=== PATIENT | male | born 1995 | race Caucasian/White ===

== ENCOUNTER → 2017-06-26 09:45 | Emergency (ER) | payer OTHER ==
[~2017-06-26 09:45] MED LIST: Ibuprofen TAB* 800 MG PO ONE
--- NOTE | 2017-06-26 11:32 | RAD ---
INDICATION: Left knee injury. TECHNIQUE: 4 views of the left knee were obtained. FINDINGS: The bones are in normal alignment. No joint effusion or fracture is seen. Joint spaces appear maintained. IMPRESSION: NO EVIDENCE FOR FRACTURE.
--- NOTE | 2017-06-26 11:32 | RAD ---
INDICATION: Left elbow injury, laceration. TECHNIQUE: 4 views of the left elbow were obtained. FINDINGS: There is soft tissue swelling and a soft tissue defect posterior to the olecranon process of the ulna. The bones are in normal alignment. No joint effusion or fracture is seen. No radio opaque foreign body is seen. IMPRESSION: SOFT TISSUE INJURY POSTERIOR TO THE PROXIMAL ULNA.
--- NOTE | 2017-06-26 13:31 | ED ---
Complex/Multi-Sys Presentation - HPI Summary HPI Summary: Pt here w/ multiple injuries - fell last night while trying to run carrying tacos in the rain. Slipped and fell. Cut Left elbow and landed on Lt knee - elbow has been cleaned and bandaged by a friend wound sore - elbow moving well. No bleeding at this time. Lt knee is worse w/ bending along lateral aspect - no bruising, swelling, numbness, tingling, weakness. Is able to bear weight. Has not tried anything for pain here. No other areas of pain or injury. Although he admits he was intoxicated, he recall all events and denies head injury, LOC, BLANCAS , visual change, vomiting or neck pain. Imms are UTD. 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 - Allergies/Home Medications Allergies/Adverse Reactions: Allergies Allergy/AdvReac Type Severity Reaction Status Date / Time No Known Allergies Allergy Verified 06/26/17 11:21 PMH/Surg Hx/FS Hx/Imm Hx Previously Healthy: Yes Endocrine/Hematology History: Denies: Hx Anticoagulant Therapy, Hx Blood Disorders, Autoimmune Disease - Immunization History Immunizations Up to Date: Yes Infectious Disease History: No Infectious Disease History: Denies: Hx of Known/Suspected MRSA, Traveled Outside the [place] in Last 30 Days - Family History Known Family History: Positive: None - Social History Occupation: Student Lives: With Family Alcohol Use: Weekly Hx Substance Use: No Substance Use Type: Reports: None Hx Tobacco Use: No Smoking Status (MU): Never Smoked Tobacco Review of Systems Constitutional: Negative Eyes: Negative Negative: Photophobia, Blurred Vision ENT: Negative Negative: Dental Pain Cardiovascular: Negative Negative: Chest Pain Respiratory: Negative Negative: Shortness Of Breath Gastrointestinal: Negative Negative: Abdominal Pain, Vomiting, Nausea Positive: no symptoms reported Musculoskeletal: Other - see HPI Skin: Other - see HPI Neurological: Negative Negative: Headache, Weakness, Paresthesia, Numbness, Syncope, Slurred Speech Psychological: Normal All Other Systems Reviewed And Are Negative: Yes Physical Exam Triage Information Reviewed: Yes Vital Signs On Initial Exam: Initial Vitals Temp Pulse Resp BP Pulse Ox 97.8 F 85 17 149/85 98 06/26/17 09:53 06/26/17 09:53 06/26/17 09:53 06/26/17 09:53 06/26/17 09:53 Vital Signs Reviewed: Yes Appearance: Positive: Well-Appearing, No Pain Distress, Well-Nourished Skin: Positive: Warm - dressing removed - blood tinged from linear laceration over Lt posterior elbow - appears clean, no edema; Lt knee w/o skin changes Head/Face: Positive: Normal Head/Face Inspection Eyes: Positive: Normal, EOMI, SID, Conjunctiva Clear ENT: Positive: Hearing grossly normal Respiratory/Lung Sounds: Positive: Breath Sounds Present Cardiovascular: Positive: Normal, Pulses are Symmetrical in both Upper and Lower Extremities Musculoskeletal: Positive: Strength/ROM Intact, Pain @ - Lt lateral knee joint is TTP - pain w/ movement but has FROM - no gross deformity - ankle and hip moving well w/o pain Neurological: Positive: Normal, Sensory/Motor Intact, Alert, Oriented to Person Place, Time, CN Intact II-III Psychiatric: Positive: Normal Procedures - Laceration/Wound Repair 1 Location: upper extremity - Lt elbow Description: Linear Anesthesia: Local, Lido Length, Depth and Shape: 2cm x2.5mm Betadine Prep?: Yes Irrigated w/ Saline (ccs): 100 Laceration/Wound Explored: clean Closure: Single Layer Suture Type: Nylon - 5-0 Number of Sutures: 5 Layer Closure?: No Sterile Dressing Applied?: Yes - triple anbx ointment + sterile gauze + RAYNE wrap Diagnostics - Vital Signs Vital Signs Temp Pulse Resp BP Pulse Ox 06/26/17 11:00 81 136/90 98 06/26/17 10:37 90 97 06/26/17 10:35 126/74 06/26/17 09:53 97.8 F 85 17 149/85 98 - Laboratory Lab Statement: Any lab studies that have been ordered have been reviewed, and results considered in the medical decision making process. Complex Multi-Symp Course/Dx - Diagnoses Provider Diagnoses: Laceration of left elbow, Contusion of left knee Discharge - Discharge Plan Condition: Stable Disposition: HOME Patient Education Materials: Laceration (ED), Care For Your Stitches (ED), Contusion in Adults (ED) Referrals: [facility] [Primary Care Provider] - Additional Instructions: Keep dressing clean, dry and in place for 48 hours. After this time, you may remove dressing - gently wash daily with soap and water - rinse well and pat dry with clean cloth then reapply triple antibiotic ointment, new gauze and RAYNE wrap. Follow-up with [facility] in 10-14 days for wound check, suture removal. *If you develop redness, swelling, drainage, streaking, fever, chills in the meantime, seek medical attention sooner For knee, rest, ice, elevate You may take ibuprofen with food for pain *If pain persists beyond 1-2 weeks, follow-up with [facility]
[2017-06-26 14:27] VITALS: BP 129/70
== END | disposition home or self-care (01) ==
LOC: ED 09:45
DX: S51.012A Laceration without foreign body of left elbow, initial encounter (principal); S80.02XA Contusion of left knee, initial encounter; W19.XXXA Unspecified fall, initial encounter; Y93.9 Activity, unspecified; Y92.9 Unspecified place or not applicable; Y99.9 Unspecified external cause status
CPT/HCPCS: 12001; 99282; A9270-GY